=== PATIENT | female | born 1940 | race Caucasian/White ===

== ENCOUNTER 2016-10-22 12:16 | Observation (INO) | payer OTHER, MEDICARE ==
[2016-10-22] MEDS ORDERED: NS 1,000 ML IV ONE (12:29)
--- NOTE | 2016-10-22 12:32 | EDPHY ---
H & P Time Seen by Provider: 10/22/16 12:28 HPI/ROS: CHIEF COMPLAINT: Expressive aphasia HISTORY OF PRESENT ILLNESS: The patient is a 76-year-old female who comes to the emergency department complaining of trouble with word finding. This began around 10:35 a.m. her symptoms persisted for about half an hour. Her states that she was having trouble explaining thinks that she should typically know about how to plug her iPhone in. She was able however to read the newspaper without any difficulty. She had no trouble with comprehension. She did not have any weakness in her extremities or face. She was able to ambulate without difficulty. On arrival to the emergency department her symptoms have completely resolved. She denies any recent illness or trauma. Both of her sisters from intracranial aneurysms. She did not have any associated chest pain or shortness of breath or nausea vomiting. REVIEW OF SYSTEMS: Constitutional: denies: chills, fever, recent illness, recent injury EENTM: denies: blurred vision, double vision, nose congestion Respiratory: denies: cough, shortness of breath Cardiac: denies: chest pain, irregular heart rate, lightheadedness, palpitations Gastrointestinal/Abdominal: denies: abdominal pain, diarrhea, nausea, vomiting, blood streaked stools Genitourinary: denies: dysuria, frequency, hematuria, pain Musculoskeletal: denies: joint pain, muscle pain Skin: denies: lesions, rash, jaundice, bruising Neurological: denies: headache, numbness, paresthesia, tingling, dizziness, weakness Hematologic/Lymphatic: denies: blood clots, easy bleeding, easy bruising Immunologic/allergic: denies: HIV/AIDS, transplant EXAM: GENERAL: Well-appearing, well-nourished and in no acute distress. HEAD: Atraumatic, normocephalic. EYES: Pupils equal round and reactive to light, extraocular movements intact, sclera anicteric, conjunctiva are normal. ENT: TMs normal, nares patent, oropharynx clear without exudates. Moist mucous membranes. NECK: Normal range of motion, supple without lymphadenopathy or JVD. LUNGS: Breath sounds clear to auscultation bilaterally and equal. No wheezes rales or rhonchi. HEART: Regular rate and rhythm without murmurs, rubs or gallops. ABDOMEN: Soft, nontender, normoactive bowel sounds. No guarding, no rebound. No masses appreciated. BACK: No CVA tenderness, no spinal tenderness, step-offs or deformities EXTREMITIES: Normal range of motion, no pitting or edema. No clubbing or cyanosis. NEUROLOGICAL: Cranial nerves II through XII grossly intact. Normal speech, normal gait. 5/5 strength, normal movement in all extremities, normal sensation , normal cerebellar exam, normal peripheral vision. Normal naming, clear speech , NIH stroke score 0 PSYCH: Normal mood, normal affect. SKIN: Warm, dry, normal turgor, no visible rashes or lesions. Source: Patient Exam Limitations: No limitations - Medical/Surgical History Hx Asthma: No Hx Chronic Respiratory Disease: No Hx Diabetes: No Hx Cardiac Disease: No Hx Renal Disease: No Hx Cirrhosis: No Hx Alcoholism: No - Family History Significant Family History: No pertinent family hx - Social History Alcohol Use: Sober Drug Use: None Constitutional: Initial Vital Signs Temperature (C) 36.5 C 10/22/16 12:31 Heart Rate 72 10/22/16 12:31 Respiratory Rate 16 10/22/16 12:31 Blood Pressure 153/115 H 10/22/16 12:31 O2 Sat (%) 98 10/22/16 12:31 O2 Delivery Mode Room Air Allergies/Adverse Reactions: epinephrine [Epinephrine] Allergy (Intermediate, Verified 07/18/09 09:21) TACHYCARDIA Sulfa (Sulfonamide Antibiotics) Allergy (Intermediate, Verified 07/18/09 09:19) Hives levofloxacin [From Levaquin] Allergy (Mild, Verified 07/18/09 09:21) BODY ACHES Home Medications: Medication Instructions Recorded Acetaminophen [Tylenol ES 500 mg 1,000 mg PO Q6H 10/22/16 (*)] Aspirin EC [Aspirin EC 81 mg (*)] 81 mg PO HS 10/22/16 Atenolol [Tenormin 50 mg (*)] 50 mg PO BID 10/22/16 Cephalexin [Keflex (*)] 250 mg PO HS 10/22/16 Cholecalciferol Vit D3 [Vitamin D3 2,000 units PO DAILY 10/22/16 (*)] Citalopram Hydrobromide [celeXA 10 10 mg PO DAILY 10/22/16 MG] Herbals/Supplements -Info Only 1 ea PO DAILY 10/22/16 Levothyroxine [Synthroid 75 mcg 75 mcg PO DAILY06 10/22/16 (*)] Meloxicam [Mobic 7.5 mg] 7.5 mg PO DAILY 10/22/16 Spironolactone [Aldactone 50 MG 50 mg PO DAILY 10/22/16 (RX)] Valsartan [Diovan] 320 mg PO HS 10/22/16 Medical Decision Making - Diagnostics Imaging: Results: CT scan of the head was obtained. The results of the study are negative. The study was read by Dr. Thompson. I viewed the images myself on the PACS system. Results: CT scan of the head and neck angiogram was obtained. The results of the study are negative for aneurysm or dissection or thrombus. The study was read by Dr. Thompson. I viewed the images myself on the PACS system. Results: MRI of the brain was obtained. The results of the study are the negative. The study was read by Dr. Thompson. I viewed the images myself on the PACS system. ED Course/Re-evaluation: 12:40 p.m. I discussed the case with Dr. Dylon Obando who agrees with the plan thus far and recommends admission for telemetry monitoring and MRI. 1:40 p.m. the patient's symptoms have not returned. She is doing well. Discussed CT results and admission. She and her agree. I have paged hospital service. 1:45 p.m. I discussed the case with Dr. Hunter Baer who will admit to the [facility]. Differential Diagnosis: Partial list of the Differential diagnosis considered include but were not limited to; TIA, aneurysm, hemorrhage, hypoglycemia, electrolyte abnormality and although unlikely based on the history and physical exam, I also considered infection, arrhythmia. - Data Points Laboratory Results: Laboratory Results 10/22/16 12:25 10/22/16 12:25 10/22/16 10/22/16 10/22/16 12:25 12:25 12:23 WBC 8.18 10^3/uL 10^3/uL (3.80-9.50) RBC 4.93 10^6/uL 10^6/uL (4.18-5.33) Hgb 16.0 g/dL g/dL (12.6-16.3) POC Hgb 16.0 gm/dL H gm/dL (12.3-15.9) Hct 45.8 % % (38.0-47.0) POC Hct 47 % % (35.5-47.5) MCV 92.9 fL fL (81.5-99.8) MCH 32.5 pg pg (27.9-34.1) MCHC 34.9 g/dL g/dL (32.4-36.7) RDW 12.2 % % (11.5-15.2) Plt Count 223 10^3/uL 10^3/uL (150-400) MPV 10.4 fL fL (8.7-11.7) Neut % (Auto) 47.8 % % (39.3-74.2) Lymph % (Auto) 36.2 % % (15.0-45.0) [place] % (Auto) 11.0 % % (4.5-13.0) Eos % (Auto) 4.0 % % (0.6-7.6) Baso % (Auto) 0.9 % % (0.3-1.7) Nucleat RBC Rel Count 0.0 % % (0.0-0.2) Absolute Neuts (auto) 3.91 10^3/uL 10^3/uL (1.70-6.50) Absolute Lymphs (auto) 2.96 10^3/uL 10^3/uL (1.00-3.00) Absolute Monos (auto) 0.90 10^3/uL H 10^3/uL (0.30-0.80) Absolute Eos (auto) 0.33 10^3/uL 10^3/uL (0.03-0.40) Absolute Basos (auto) 0.07 10^3/uL 10^3/uL (0.02-0.10) Absolute Nucleated RBC 0.00 10^3/uL 10^3/uL (0-0.01) Immature Gran % 0.1 % % (0.0-1.1) Immature Gran # 0.01 10^3/uL 10^3/uL (0.00-0.10) POC Sodium 140 mEq/L mEq/L (134-144) Sodium 139 mEq/L mEq/L (134-144) POC Potassium 4.8 mEq/L mEq/L (3.3-5.0) Potassium 5.1 mEq/L mEq/L (3.5-5.2) POC Chloride 106 mEq/L mEq/L (96-108) Chloride 107 mEq/L mEq/L (97-110) Carbon Dioxide 22 mEq/l mEq/l (22-31) Anion Gap 10 mEq/L mEq/L (8-16) POC BUN 22 mg/dL mg/dL (7-23) BUN 19 mg/dL mg/dL (7-23) Creatinine 1.1 mg/dL H mg/dL (0.6-1.0) POC Creatinine 1.1 mg/dL mg/dL (0.6-1.2) Estimated GFR 48 Glucose 96 mg/dL mg/dL (70-100) POC Glucose 97 mg/dL mg/dL (70-100) Calcium 10.1 mg/dL mg/dL (8.5-10.4) Troponin I < 0.012 ng/mL ng/mL (0-0.034) Medications Given: Discontinued Medications Sodium Chloride (Ns) 1,000 mls @ 0 mls/hr IV ONCE ONE PRN Reason: Wide Open Stop: 10/22/16 12:30 Last Admin: 10/22/16 13:41 Dose: 1,000 mls Point of Care Test Results: 10/22/16 12:23 POC Sodium 140 POC Potassium 4.8 POC Chloride 106 POC BUN 22 POC Creatinine 1.1 POC Glucose 97 Departure - Departure Disposition: Home, Routine, Self-Care Clinical Impression: Transient ischemic attack (TIA) Qualifiers: Transient cerebral ischemia type: unspecified Qualified Code(s): G45.9 - Transient cerebral ischemic attack, unspecified Condition: Fair
[2016-10-22 12:36] LABS: % IMMATURE GRANULYOCYTES 0.1 % (0.0-1.1); ABSOLUTE IMMATURE GRANULOCYTES 0.01 10^3/uL (0.00-0.10); ADD DIFF? NO; ADD MORPH? NO; ADD SCAN? NO; ATYPICAL LYMPHOCYTE FLAG 0 (0-99); FRAGMENT RBC FLAG 0 (0-99); HEMATOCRIT 45.8 % (38.0-47.0); LEFT SHIFT FLG 0 (0-99); LIPEMIA HEMOLYSIS FLAG 90 (0-99); MEAN CELL HEMOGLOBIN 32.5 pg (27.9-34.1); MEAN CELL HEMOGLOBIN CONCENTR. 34.9 g/dL (32.4-36.7); MEAN CELL VOLUME 92.9 fL (81.5-99.8); MEAN PLATELET VOLUME 10.4 fL (8.7-11.7); PLATELET CLUMPS FLAG 0 (0-99); PLATELET COUNT 223 10^3/uL (150-400); RED BLOOD CELL COUNT 4.93 10^6/uL (4.18-5.33); RED CELL DISTRIBUTION WIDTH 12.2 % (11.5-15.2)
[2016-10-22 12:52] LABS: ANION GAP 10 mEq/L (8-16); CALCIUM 10.1 mg/dL (8.5-10.4); CARBON DIOXIDE 22 mEq/l (22-31); CHLORIDE 107 mEq/L (97-110); CREATININE 1.1 mg/dL (0.6-1.0); GLOMERULAR FILTRATION RATE 48; GLUCOSE 96 mg/dL (70-100); POTASSIUM 5.1 mEq/L (3.5-5.2); SODIUM 139 mEq/L (134-144)
[2016-10-22 13:02] LABS: TROPONIN I < 0.012 ng/mL (0-0.034)
--- NOTE | 2016-10-22 16:20 | GHP ---
DATE OF ADMISSION: 10/22/2016 CHIEF COMPLAINT: Difficulty speaking. HISTORY OF PRESENT ILLNESS: This is a 76-year-old female with little past medical history, who pres ents with about 45 minutes of difficulty speaking. She had run a number of errands this morning. S he was trying to explain something to her and was unable to get the words out. He asked her to read the [employer] and she was able to comprehend the reading however, she was not able to read it aloud. She had no other associated symptoms including confusion, numbness, or weakness. Lee rene has had a headache for the past few weeks since she has been in [place]. She spends half of her t julienne in [place] and half in [place]. She got here about 12 days ago. She usually has difficulty what she calls re-acclimating the [place]. She does take aspirin. PAST MEDICAL/SURGICAL HISTORY: 1. Chronic UTIs, on suppressive Keflex. 2. Arthritis. 3. Hypertension. 4. Hypothyroid. MEDICATIONS: Please see medication reconciliation. ALLERGIES: Epinephrine, sulfa, and Levaquin. FAMILY HISTORY: Multiple sisters have had brain aneurysms. SOCIAL HISTORY: She does not drink significantly or smoke. She is accompanied by her . Joyce es half her time in [place], half in [place]. REVIEW OF SYSTEMS: Ten-point review of systems is conducted and is negative, except per HPI. PHYSICAL EXAM: VITAL SIGNS: Blood pressure 157/87, heart rate 72, respiration rate 14, satting at 93% on room air, temperature is 36.8, GENERAL: The patient is a pleasant female, appears comfortab le, in no acute distress. HEENT: She is normocephalic, atraumatic. CARDIOVASCULAR: Regular rate and rhythm. There are no murmurs, rubs, or gallops. PULMONARY: She is in no respiratory distress. Her lungs are clear bilaterally. ABDOMEN: Soft, nontender, nondistended. SKIN: No rash. : No [place]. NEUROLOGIC: She is alert and oriented x3. Cranial nerves 2-12 are intact. Motor is int act in the upper and lower extremities. Sensation is intact in the upper and lower extremities. PS YCHIATRIC: Normal mood and affect. LABORATORY DATA: CBC is normal. Basic metabolic panel is normal. Troponin is unmeasurable. DATA: 1. Reviewed her chart. 2. I reviewed her neck and head CTA. Her brain CT angiogram is negative. Her neck CT angiogram sh ows no significant stenoses. 3. Head CT shows nothing acute. 4. Brain MRI shows mild deep hemispheric white matter change. IMPRESSION AND PLAN: A 76-year-old female with a short period of asphasia. 1. Aphasia: Suspect this is most likely TIA. Also consider complex migraine. Will continue her [facility] workup, including monitoring her on telemetry, echocardiogram. She will be seen by Dr. Obando with Neurology. She has been given a full-dose aspirin. 2. Hypothyroid: Recent TSH was normal. Continue her Synthroid. 3. Chronic urinary tract infection: Continue her suppressive Keflex. 4. Hypertension: Continue her atenolol. /[id number]/MODL
[2016-10-22] MEDS: ACETAMINOPHEN 500 MG TAB PO SCH ×2 (16:47→21:10)
[2016-10-22 18:48] LABS: HEMOGLOBIN A1C 5.7 % (4.0-6.0)
--- NOTE | 2016-10-22 19:01 | ECHO ---
[id number] + + [phone] : : [place] [address] : : [phone] + Adult Echocardiographic Report + -------+ :Name: HERMINIO FISHER BStudy Date: 10/22/2016 03:37 PM : : Hospital Admission Number: [id number] Locati on: 142: :: 1940 Gender: Female Height: 66 in : :Age: 76 yrs Race: WH Weight: 195 lb : :Reason For Study: Ischemic stroke : : BSA: 2.0 meter s2 : + -------+ MMode/2D Measurements \T\ Calculations IVSd: 0.84 cm LVIDd: 4.3 cm FS: 45.3 % Ao root diam: LVPWd: 0.85 cm LVIDs: 2.4 cm EDV(Teich): 3.6 cm 84.3 ml ESV(Teich): 19.4 ml EF(Teich): 76.9 % LVLd ap4: 8.0 cm SV(MOD-sp4): EDV(MOD-sp4): 49.0 ml 62.0 ml LVLs ap4: 6.6 cm ESV(MOD-sp4): 13.0 ml EF(MOD-sp4): 79.0 % Normal Measurement Values: + + :LVIDd (3.5-5.7cm) IVSd (0.6-1.1cm) LVPWd (0.6-1.1cm) Aortic Root (2.0-3.7cm)Left Atrium (1.5-4.0cm): :LV Vol(d) (76-115ml) LV Vol(s) (29-48ml) Ejec Fraction (50-65%)PV Raudel (0.6- 1.2m/s) TV Raudel (0.4-1.0m/s) : :MV E Raudel (0.8-1.0m/s)MV A Raudel (0.3-1.0m/s)LVOT Raduel (0.7-1.2m/s) Asc Ao Raudel ( 0.9-1.8m/s) : + + Doppler Measurements \T\ Calculations MV E max raudel: Ao mean PG: AI max raudel: TR max raudel: 41.5 cm/sec 3.2 mmHg 438.7 cm/sec 217.2 cm/sec MV A max raudel: Ao V2 mean: AI max P.0 mmHgTR max P.2 cm/sec 85.5 cm/sec AI dec slope: 18.9 mmHg MV E/A: 0.64 Ao V2 VTI: 194.0 cm/sec2 RAP systole: 26.8 cm AI P1/2t: 662.2 msec5.0 mmHg RVSP(TR): 23.9 mmHg Left Ventricle The left ventricle is normal in size. There is normal left ventricular wall thickness. Left ventricular systolic function is normal. Ejection Fraction = 70-75%. No regional wall motion abnormalities noted. Right Ventricle The right ventricle is normal in size and function. Atria The left atrial size is normal. Right atrial size is normal. Injection of contrast documented no interatrial shunt. Mitral Valve The mitral valve is normal in structure and function. There is no evidence of mitral valve prolapse. There is no mitral valve stenosis. There is trace mitral regurgitation. Tricuspid Valve Normal tricuspid valve. There is mild tricuspid regurgitation. Aortic Valve The aortic valve opens well. The aortic valve is trileaflet. There is no aortic stenosis. Mild aortic regurgitation. Pulmonic Valve The pulmonic valve is normal in structure and function. Mild pulmonic valvular regurgitation. Great Vessels The aortic root is normal size. Pericardium/Pleural There is no pericardial effusion. There is a fat pad seen. Conclusion A complete two-dimensional transthoracic echocardiogram was performed (2D, M-mode, Doppler and color flow Doppler). There is no obvious source of embolus identified. If one is highly clinically suspected, then transesophageal echocardiography should be considered. Left ventricular systolic function is normal. Ejection Fraction = 70-75%. There is trace mitral regurgitation. There is mild tricuspid regurgitation. Mild aortic regurgitation. Mild pulmonic valvular regurgitation. Injection of contrast documented no interatrial shunt. There is a fat pad seen. Final Reading Physician: Andreas Valerio signed on 10/22/2016 07:00 PM Ordering Physician: Dylon Obando Performed By: Nuzhat Colon RDCS
[2016-10-22 20:13] VITALS: RESP 16
[2016-10-22] MEDS ORDERED: VALSARTAN 160 MG TAB PO SCH (21:00)
[2016-10-22] MEDS ORDERED: CEPHALEXIN 250 MG CAP PO SCH (21:00)
[2016-10-22] MEDS ORDERED: NON-FORMULARY NEW DRUG (Valsartan [Diovan] 320 MG) PO SCH (21:00)
[2016-10-22] MEDS: ATENOLOL 50 MG TAB PO SCH (21:10)
--- NOTE | 2016-10-22 22:17 | GCON ---
INPATIENT CONSULTATION NOTE. DATE OF CONSULTATION: 10/22/2016 CHIEF COMPLAINT: Expressive aphasia. HISTORY OF PRESENT ILLNESS: Dr. Jamie Angeles of the Emergency Room consulted Neurology for evaluation of patient's transient aphasia. Results of evaluation were placed in the EMR for his review. This is a 76-year-old female, who came to the Emergency Department on October 22, 2016, with an episode of 30 minutes of word finding problems. She stated she was able to read and had no other neurologic problems. She does state she has migraines, and recently she has had several migraines because of getting headache and having visual changes. However, she has never had speech disturbance accompanying a migraine before. that is what concerned her and brought her to the Emergency Room. Symptoms have since resolved since arrival to the Emergency Room, and she has had no neurologic problems since admission. REVIEW OF SYSTEMS: A 10-point review of systems was negative except for what was placed in HPI. PAST MEDICAL AND SURGICAL HISTORY: Migraines. FAMILY HISTORY: No pertinent family history. SOCIAL HISTORY: Denies significant alcohol or drug use. ALLERGIES: Epinephrine, sulfa, and levofloxacin. PHYSICAL EXAMINATION: VITAL SIGNS: Blood pressure is 116/74, heart rate 88, respirations 16, saturating 98% on room air. Temperature 36.7 degrees Celsius. GENERAL: No acute distress. EYES: Funduscopic exam could not visualize optic discs. LUNGS: Clear to auscultation bilaterally. No rhonchi or rales. HEART: Regular rate and rhythm. No murmurs. No carotid bruits auscultated. NEUROLOGIC: Mental status alert and oriented to person, place, and date. Memory, attention, language, and fund of knowledge all appear intact. Cranial nerves: Pupils equal, round, and reactive to light. Visual pena full to confrontation. Extraocular muscles intact. Bilateral face intact to sensation and motor movement. Hearing intact to conversation. Uvula raises symmetrically. Tongue protrudes midline. Traps 5/5 strength. Motor: Normal tone and strength in all 4 extremities. Sensory: All 4 extremities intact to light touch. Reflexes: Bilateral patellas are trace out of 4. Coordination: Bilateral [id number], [id number], and rapid alternating movements are normal. Gait deferred. NIH stroke scale is 0. LABORATORY DATA: October 22, 2016: The CBC is unremarkable. Chemistry with a creatinine of 1.1. Troponin negative. Radiology October 22, 2016: Head CT shows no acute changes. I personally visualized the study. October 22, 2016: A CT angiogram of the head and neck shows no significant findings. October 22, 2016: A brain MRI without contrast is still pending the full radiology read , but on my review shows only mild chronic microvascular disease and no acute ischemia. ASSESSMENT: 1. 30 minutes of speech disturbance: Symptoms are most consistent with a TIA, assuming that the MRI is negative as it looks to me, or a complex migraine. Given that she reports recurrent migrainous symptoms now and her brain MRI was negative for ischemia, I would favor complex migraine, although I will still perform a full stroke evaluation as a transient ischemic attack is certainly possible. 2. History of migraines. RECOMMENDATIONS: 1. NIH stroke scale 0. 2. Transthoracic echocardiogram. 3. 24 hour telemetry looking for any paroxysmal atrial fibrillation. 4. Will change her home aspirin to 81 mg to Plavix 75 mg for greater stroke prevention. 5. Lipid panel pending. 6. H1AC pending 7. Blood pressure goal less than 140/90. DISCUSSION: I suspect she likely had a complex migraine, but a TIA is also possible. As her echocardiogram and 24-hour telemetry are all unremarkable, I will plan on just changing her aspirin to Plavix and beginning a statin if her LDL is greater than 70. Otherwise, she can likely be discharged when she reaches 24 hours telemetry monitoring and follow up with me in the outpatient setting in 3-4 weeks. Neurology will continue to follow closely. /[id number]/MODL MTDD
[2016-10-23] MEDS: ACETAMINOPHEN 500 MG TAB PO SCH ×2 (04:37→08:21)
[2016-10-23] MEDS ORDERED: LEVOTHYROXINE 75 MCG TAB PO SCH ×2 (06:00)
[2016-10-23 06:42] LABS: CHOLESTEROL 160 mg/dL (140-220); HIGH DENSITY LIPOPROTEIN 39 mg/dL (40-85); LOW DENSITY LIPOPROTEIN 82 mg/dL (80-100); NON-HIGH DENSITY LIPOPROTEIN 121 mg/dL (90-129); TRIGLYCERIDE 199 mg/dL (35-135); VERY LOW DENSITY LIPOPROTEINS 39 mg/dL (8-25)
[2016-10-23 08:15] VITALS: BP 121/64; TEMP 98.7; O2SAT 95
[2016-10-23] MEDS: ATENOLOL 50 MG TAB PO SCH (08:22)
[2016-10-23 08:32] VITALS: PULSE 67
[2016-10-23] MEDS ORDERED: ASPIRIN 325 MG TAB PO SCH (09:00)
[2016-10-23] MEDS ORDERED: MELOXICAM 7.5 MG PO SCH (09:00)
[2016-10-23] MEDS ORDERED: NON-FORMULARY NEW DRUG (Citalopram Hydrobromide [Celexa 10 Mg] 10 MG) PO SCH (09:00)
[2016-10-23] MEDS ORDERED: VALSARTAN 160 MG TAB PO SCH (09:00)
[2016-10-23] MEDS ORDERED: CITALOPRAM 20 MG TAB PO SCH (09:00)
[2016-10-23] MEDS ORDERED: SPIRONOLACTONE 50 MG TAB PO SCH (09:00)
[2016-10-23] MEDS ORDERED: CHOLECALCIFEROL VIT D3 1,000 UNITS TAB PO SCH (09:00)
--- NOTE | 2016-10-23 09:17 | GHP ---
DATE OF ADMISSION: 10/22/2016 DIAGNOSES: 1. Aphasia, likely transient ischemic attack. 2. Hypothyroid. 3. Chronic urinary tract infection. 4. Hypertension. 5. Headache, possible migraine. HOSPITAL COURSE: A 76-year-old female, admitted with a 45 minute episode of expressive aphasia whic h completely resolved. No other neurologic deficits. Considerations include TIA versus complex zakiya [place]. Will treat as TIA. Workup for secondary causes was negative including head and neck CTA, ec hocardiogram. Brain MRI showed no infarct. It did show some white matter changes which were nonspe cific. LDL was 82. She was seen by Neurology who agrees with the entire plan. Her telemetry was n egative for any arrhythmias. Plan will be to discharge her with her . She was given a referral to see Dr. Obando as an outp atient. We will change her aspirin to Plavix. Place her on low-dose Crestor for LDL of 82 with a g oal less than 70. DISPOSITION: Discharged home with her . She is traveling to the [facility] soon and then ba to [place] thereafter. This may preclude her from following up with Dr. Obando in a timely fas hion. /[id number]/MODL
== END 2016-10-23 11:55 | disposition home or self-care (01) ==
LOC: F1N 14:13
PROVIDERS: ADMIT Internal Medicine; ATTEND Student in an Organized Health Care Education/Training Program
DX: R47.01 Aphasia (principal); E03.9 Hypothyroidism, unspecified; N39.0 Urinary tract infection, site not specified; I10 Essential (primary) hypertension; R51 Headache; I70.8 Atherosclerosis of other arteries; M50.30 Other cervical disc degeneration, unspecified cervical region; Z88.2 Allergy status to sulfonamides; Z79.2 Long term (current) use of antibiotics; M19.90 Unspecified osteoarthritis, unspecified site; R29.700 NIHSS score 0
CPT/HCPCS: 70450; 70496; 70498; 70551; 92610; 93306; 97161; 97165; G0378; G8978; G8979; G8980; G8987; G8988; G8989; G8996; G8997; G8998; 82947-QW

== ENCOUNTER → 2017-08-07 | Outpatient (CLI) | payer OTHER, MEDICARE | LOC: FIMAGING 09:41 | DX: Z12.31 Encounter for screening mammogram for malignant neoplasm of breast (principal) | CPT/HCPCS: G0202 ==

== ENCOUNTER → 2018-08-08 | Outpatient (CLI) | payer OTHER, MEDICARE | LOC: FIMAGING 09:19 | DX: Z12.31 Encounter for screening mammogram for malignant neoplasm of breast (principal) ==